=== PATIENT | male | born 1970 | race African-American/Black ===

== ENCOUNTER 2022-11-03 20:04 | Emergency (ER) | payer OTHER | END 2022-11-03 20:34 | LOC: CSHERS 20:04 | DX: T82.594A Other mechanical complication of infusion catheter, initial encounter (principal) | CPT/HCPCS: 99283 ==

== ENCOUNTER 2024-09-08 19:11 | Emergency (ER) | payer OTHER ==
[2024-09-08] MEDS ORDERED: Acetaminophen 500 MG TAB ONE (19:44)
[2024-09-08 19:49] LABS: #Basophils 0.09 10x3/uL (0.0-0.2); #Eosinophils 0.41 10x3/uL (0.0-0.5); #Neutrophils 5.49 10x3/uL (1.5-8.4); %Eosinophils 4.7 % (0.0-6.0); %Lymphocytes 23.7 % (18.0-47.0); %Monocytes 6.9 % (0.0-10.0); %Neutrophils 63.6 % (40.0-75.0); Hematocrit 43.9 % (38.8-50.0); Hemoglobin 15.2 g/dL (13.5-17.5); Mean Corpuscular HGB CONC 34.6 g/dL (32.0-36.0); Mean Corpuscular Volume 89.4 fL (81.2-95.1); Mean Platelet Volume 10.3 fL (7.4-10.4); Platelet Count 290 10x3/uL (150-450); RBC Distribution Width 12.4 % (11.5-14.5); Red Blood Cell (RBC) Count 4.91 10x6/uL (4.32-5.72); White Blood Cell (WBC) Count 8.65 10x3/uL (3.5-10.5)
[2024-09-08 20:07] LABS: ALT (SGPT) 34 U/L (Less than 45); AST (SGOT) 42 U/L (11-34); Albumin 3.9 g/dL (3.1-4.5); Alkaline Phosphatase 44 U/L (40-110); Anion Gap 11 mmol/L (10-20); BUN (Urea Nitrogen) 13 mg/dL (8.4-25.7); Bilirubin, Total 0.4 mg/dL (0.3-1.2); CK (CPK) 1072 U/L (30-200); Calc. Creatinine Clearance 0 mL/min (70-130); Calcium 8.8 mg/dL (7.8-10.44); Carbon Dioxide 20 mmol/L (22-29); Chloride 111 mmol/L (98-107); Estimated GFR 108; Globulin 3.4 g/dL (2.4-3.5); Glucose 77 mg/dL (70-105); Potassium 4.1 mmol/L (3.5-5.1); Protein, Total 7.3 g/dL (6.0-8.3); Sodium 138 mmol/L (136-145)
[2024-09-08 22:00] LABS: Bilirubin Neg (Negative); Blood, Urine 25 (Negative); Clarity Clear (Clear); Glucose, Urine (Dipstick) Normal (Negative); Ketone, Urine Negative (Negative); Leukocyte Negative (Negative); Nitrite Negative (Negative); Protein, Urine (Dipstick) Negative (Neg-Trace); Urobilinogen Normal mg/dL (Less than 2)
[2024-09-08 22:15] LABS: Bacteria/HPF 2+ HPF (None Seen); CAUTI Indications for Culture Pelvic or flank pain; Squamous Epithelial 0-3 HPF (0-3); WBC/HPF 0-3 HPF (0-3)
[2024-09-08 22:18] LABS: Urine Culture Reflex No No
[2024-09-08] MEDS ORDERED: Ketorolac Tromethamine 30 MG (1 mL) VIAL ONE (22:37)
== END 2024-09-08 22:54 ==
LOC: CSHERS 19:11 → EEVIPCON 19:11 → CSHERS 22:54
DX: R56.9 Unspecified convulsions (principal); R74.8 Abnormal levels of other serum enzymes; I10 Essential (primary) hypertension
CPT/HCPCS: 36415; 80053; 81001; 82550; 85025; 96361; 96374; J1885